=== PATIENT | female | born 1955 | race Caucasian/White ===

== ENCOUNTER 2017-10-20 10:50 | Emergency (ER) | payer OTHER ==
[2017-10-20] MEDS: SOD CHLORIDE 0.9% 500 ML IV (11:31)
[2017-10-20] MEDS: RACEPINEPHRINE 2.25%(NEB) 0.5 ML AMP HHN (11:36)
[2017-10-20] MEDS: METHYLPREDNISOLONE 125 MG INJ IV (12:24)
== END 2017-10-20 14:02 | disposition home or self-care (01) ==
LOC: E/R 10:50
DX: J06.9 Acute upper respiratory infection, unspecified (principal); R07.9 Chest pain, unspecified; J04.0 Acute laryngitis; R06.02 Shortness of breath; Z79.82 Long term (current) use of aspirin
CPT/HCPCS: 71045; 87400; 93005; 94664; 96374; 99285-25

== ENCOUNTER 2018-04-08 05:42 | Inpatient (IN) | payer OTHER ==
[~2018-04-08 05:42] MED LIST: LACTATED RINGER'S 1,000 ML IV*
[2018-04-08 06:35] LABS: ADD MAN DIFF? NO
[2018-04-08 06:36] LABS: BASOPHILS % 0.1 % (0.0-2.0); EOSINOPHILS # 0.1 10^3/ul (0.0-0.5); EOSINOPHILS % 0.9 % (0.0-7.0); HEMATOCRIT 44.2 % (37.0-47.0); HEMOGLOBIN 14.5 g/dl (12.0-16.0); LYMPHOCYTES # 2.3 10^3/ul (0.8-2.9); LYMPHOCYTES % 33.6 % (15.0-51.0); MEAN CORPUSCULAR HGB CONC 32.8 g/dl (32.0-37.0); MEAN CORPUSCULAR VOLUME 94.6 fl (82.0-101.0); MEAN PLATELET VOLUME 9.9 fl (7.4-10.4); MONOCYTE # 0.5 10^3/ul (0.3-0.9); MONOCYTES % 7.8 % (0.0-11.0); NEUTROPHIL # 3.9 10^3/ul (1.6-7.5); NEUTROPHILS % 57.3 % (39.0-77.0); PLATELET COUNT 301 10^3/UL (140-415); RED BLOOD COUNT 4.67 10^6/ul (4.20-5.40); RED CELL DISTRIBUTION WIDTH 13.7 % (11.5-14.5)
[2018-04-08 06:36] LABS: WHITE BLOOD COUNT 6.8 10^3/ul (4.8-10.8)
[2018-04-08] MEDS ORDERED: METOCLOPRAMIDE 10 MG INJ (07:00)
[2018-04-08] MEDS ORDERED: CEFAZOLIN 1 GM INJ (07:00)
[2018-04-08] MEDS ORDERED: DEXAMETHASONE 4 MG/ML 1 ML INJ (07:00)
[2018-04-08 07:01] LABS: INR 1.04; PARTIAL THROMBOPLASTIN TIME 27.4 Sec (25.0-35.0); PROTIME 13.7 Sec (11.9-14.9); PT RATIO 1.1
[2018-04-08 07:03] LABS: ALANINE AMINOTRANSFERASE 22 IU/L (13-69); ALBUMIN 4.5 g/dl (3.3-4.9); ALBUMIN/GLOBULIN RATIO 1.18; ALKALINE PHOSPHATASE 115 IU/L (42-121); ANION GAP 15 (8-16); ASPARTATE AMINO TRANSFERASE 27 IU/L (15-46); BILIRUBIN,INDIRECT 0.8 mg/dl (0-1.1); BILIRUBIN,TOTAL 0.8 mg/dl (0.2-1.3); CARBON DIOXIDE 24 mmol/L (21-31); CHLORIDE 109 mmol/L (97-110); GLUCOSE 114 mg/dl (70-220); TOTAL PROTEIN 8.3 g/dl (6.1-8.1)
[2018-04-08 07:06] LABS: BLOOD UREA NITROGEN 10 mg/dl (7-20); CALCIUM 9.2 mg/dl (8.4-10.2); CREATININE 0.74 mg/dl (0.44-1.00); POTASSIUM 4.1 mmol/L (3.5-5.1); SODIUM 144 mmol/L (135-144)
[2018-04-08] MEDS ORDERED: SUCCINYLCHOLINE CHLORIDE 100 MG/5 ML SYG IV (07:28)
[2018-04-08] MEDS ORDERED: ROCURONIUM 50 MG INJ (07:28)
[2018-04-08] MEDS ORDERED: LIDOCAINE 2% (SDV) 5 ML INJ (07:28)
[2018-04-08] MEDS ORDERED: PROPOFOL 20 ML (07:28)
[2018-04-08] MEDS ORDERED: MIDAZOLAM 1 MG/ML 2 ML INJ (07:28)
[2018-04-08] MEDS ORDERED: FENTAnyl 50 MCG/ML VIAL (07:28)
[2018-04-08] MEDS ORDERED: ONDANSETRON 4 MG INJ (07:29)
[2018-04-08] MEDS ORDERED: morphine SULFATE/PF (10 MG/10 ML) INJ (07:51)
[2018-04-08] MEDS ORDERED: BUPIVACAINE 0.75%/DEXT (SPINAL) 2 ML INJ (07:52)
[2018-04-08] MEDS: BUPIVACAINE 0.25%/EPI (SDV) 30 ML INJ ×2 (08:11→09:35)
[2018-04-08] MEDS: THROMBIN 5000 UNIT VIAL (08:44)
[2018-04-08] MEDS ORDERED: EPHEDrine 50 MG INJ (09:10)
[2018-04-08] MEDS ORDERED: BUPIVACAINE 0.25%/EPI (SDV) 30 ML INJ (09:28)
[2018-04-08] MEDS ORDERED: SUGAMMADEX SODIUM 200 MG/2 ML VIAL IV (10:58)
[2018-04-08] MEDS: KETOROLAC 30 MG INJ IV ×2 (11:00→17:57)
[2018-04-08] MEDS ORDERED: HYDROmorphONE 1 MG/ML SYG IV (11:00)
[2018-04-08] MEDS ORDERED: HYDROCODONE/APAP (5/325) TAB PO (11:00)
[2018-04-08] MEDS ORDERED: DIPHENHYDRAMINE 50 MG CAP PO (11:00)
[2018-04-08] MEDS ORDERED: ZOLPIDEM 5 MG TAB PO (11:00)
[2018-04-08] MEDS ORDERED: KETOROLAC 30 MG INJ IV (11:30)
[2018-04-08] MEDS ORDERED: FENTAnyl 50 MCG/ML VIAL IV ×2 (11:30)
[2018-04-08] MEDS ORDERED: DIPHENHYDRAMINE 50 MG INJ IV (11:30)
[2018-04-08] MEDS ORDERED: HYDROmorphONE 1 MG/5 ML IV SYRINGE IV ×2 (11:30)
[2018-04-08] MEDS ORDERED: MEPERIDINE 25 MG INJ IV (11:30)
[2018-04-08] MEDS ORDERED: ONDANSETRON 4 MG INJ IV (11:30)
[2018-04-08] MEDS: CEFAZOLIN 2 GM/50 ML (PMX) 50 ML IVPB (12:29)
[2018-04-08] MEDS ORDERED: CEFAZOLIN 1 GM/50 ML (PMX) 50 ML IVPB (14:00)
[2018-04-08] MEDS: LACTATED RINGER'S 1,000 ML IV ×2 (14:38→19:00)
[2018-04-08] MEDS: METOCLOPRAMIDE 10 MG TAB PO ×2 (15:27→18:00)
[2018-04-08] MEDS: CEFAZOLIN 1 GM/50 ML (PMX) 50 ML IVPB (17:56)
[2018-04-08] MEDS: ONDANSETRON 4 MG INJ IV (18:53)
[2018-04-09] MEDS: CEFAZOLIN 1 GM/50 ML (PMX) 50 ML IVPB ×2 (00:32→09:19)
[2018-04-09] MEDS: KETOROLAC 30 MG INJ IV ×5 (00:33→23:00)
[2018-04-09] MEDS: LACTATED RINGER'S 1,000 ML IV ×2 (00:34→06:45)
[2018-04-09 05:25] LABS: ADD MAN DIFF? NO
[2018-04-09 05:39] LABS: BASOPHILS % 0.1 % (0.0-2.0); EOSINOPHILS % 0.1 % (0.0-7.0); HEMATOCRIT 35.8 % (37.0-47.0); HEMOGLOBIN 11.7 g/dl (12.0-16.0); LYMPHOCYTES # 2.3 10^3/ul (0.8-2.9); LYMPHOCYTES % 18.9 % (15.0-51.0); MEAN CORPUSCULAR HEMOGLOBIN 31.5 pg (29.0-33.0); MEAN CORPUSCULAR HGB CONC 32.7 g/dl (32.0-37.0); MEAN CORPUSCULAR VOLUME 96.5 fl (82.0-101.0); MEAN PLATELET VOLUME 10.2 fl (7.4-10.4); NEUTROPHILS % 72.4 % (39.0-77.0); PLATELET COUNT 248 10^3/UL (140-415); RED BLOOD COUNT 3.71 10^6/ul (4.20-5.40); RED CELL DISTRIBUTION WIDTH 13.9 % (11.5-14.5)
[2018-04-09 05:39] LABS: WHITE BLOOD COUNT 12.4 10^3/ul (4.8-10.8)
[2018-04-09] MEDS: METOCLOPRAMIDE 10 MG TAB PO ×4 (06:44→18:56)
[2018-04-09 06:47] LABS: ANION GAP 10 (8-16); BLOOD UREA NITROGEN 9 mg/dl (7-20); CARBON DIOXIDE 26 mmol/L (21-31); CHLORIDE 110 mmol/L (97-110); CREATININE 0.71 mg/dl (0.44-1.00); POTASSIUM 4.3 mmol/L (3.5-5.1); SODIUM 142 mmol/L (135-144)
[2018-04-09] MEDS: LOSARTAN 25 MG TAB PO (09:19)
[2018-04-09] MEDS: HYDROCODONE/APAP (5/325) TAB PO (23:16)
[2018-04-10] MEDS: KETOROLAC 30 MG INJ IV ×2 (05:00→11:00)
[2018-04-10] MEDS: BISACODYL (EC) 5 MG TAB PO (06:54)
[2018-04-10] MEDS: METOCLOPRAMIDE 10 MG TAB PO ×3 (06:54→12:14)
[2018-04-10] MEDS: HYDROCODONE/APAP (5/325) TAB PO (08:59)
[2018-04-10] MEDS: LOSARTAN 25 MG TAB PO (08:59)
== END 2018-04-10 16:40 | disposition home or self-care (01) | DRG 743 ==
LOC: REC 05:42 → MS1 13:20
PROC: 0UT97ZZ Resection of Uterus, Via Natural or Artificial Opening (ICD-10-PCS; principal; 2018-04-08 07:30)
PROC: 0UB77ZZ Excision of Bilateral Fallopian Tubes, Via Natural or Artificial Opening (ICD-10-PCS; 2018-04-08 07:30)
PROC: 0JQC0ZZ Repair Pelvic Region Subcutaneous Tissue and Fascia, Open Approach (ICD-10-PCS; 2018-04-08 07:30)
PROC: 0JQC0ZZ Repair Pelvic Region Subcutaneous Tissue and Fascia, Open Approach (ICD-10-PCS; 2018-04-08 07:30)
PROC: 0TSD0ZZ Reposition Urethra, Open Approach (ICD-10-PCS; 2018-04-08 07:30)
DX: N81.3 Complete uterovaginal prolapse (principal); N39.46 Mixed incontinence; K59.00 Constipation, unspecified; N95.2 Postmenopausal atrophic vaginitis; I10 Essential (primary) hypertension; Z88.2 Allergy status to sulfonamides
CPT/HCPCS: 80051; 80053; 82565; 84520; 85025; 85610; 85730; 88305; 93005

== ENCOUNTER 2018-09-17 09:43 | Day surgery (SDC) | payer OTHER ==
[2018-09-17] MEDS ORDERED: MIDAZOLAM 1 MG/ML 2 ML INJ ×2 (12:41)
[2018-09-17] MEDS ORDERED: FENTAnyl 50 MCG/ML VIAL (12:42)
== END 2018-09-17 14:11 | disposition home or self-care (01) ==
LOC: GIL 09:43
DX: Z12.11 Encounter for screening for malignant neoplasm of colon (principal); K57.30 Diverticulosis of large intestine without perforation or abscess without bleeding; I10 Essential (primary) hypertension
CPT/HCPCS: 45378